=== PATIENT | female | born 1960 | race African-American/Black ===

== ENCOUNTER 2018-01-02 12:36 | Outpatient (CLI) | payer MEDICARE ==
--- NOTE | 2018-01-02 14:34 | RAD ---
LEFT SHOULDER RADIOGRAPHS 3 VIEWS: Date: 01/02/18 PROVIDED CLINICAL HISTORY: Left shoulder pain. FINDINGS: There is no evidence for fracture or other acute osseous abnormality. If there is persistent clinical concern, conservative management and follow-up imaging are advised. IMPRESSION: As above. POS: [facility]
--- NOTE | 2018-01-02 14:35 | RAD ---
LEFT HIP RADIOGRAPHS 2 VIEWS: Date: 01/02/18 PROVIDED CLINICAL HISTORY: Left hip pain. FINDINGS: There is no evidence for fracture or other acute osseous abnormality. Alignment appears anatomic. Lef t hip joint space appears preserved. No lytic or blastic lesions are seen. Lower lumbar spine degener ative changes are partially visualized. IMPRESSION: No evidence for an acute osseous abnormality or significant arthropathy. POS: [facility]
== END 2018-01-02 12:37 | disposition home or self-care (01) ==
LOC: MADRAD 12:36
DX: M25.512 Pain in left shoulder (principal); M25.552 Pain in left hip